=== PATIENT | female | born 1995 | race African-American/Black ===

== ENCOUNTER 2017-04-20 19:53 | Emergency (ER) | payer OTHER ==
[~2017-04-20] VITALS: Ht 162.6 cm; Wt 66.2 kg
[2017-04-20 20:07] VITALS: Ht 162.6 cm; Wt 66.2 kg
[2017-04-20 23:39] LABS: UA SPECIFIC GRAVITY >=1.030 (1.005-1.035); microscopic required? YES; urine erythrocyte NEGATIVE (NEGATIVE)
[2017-04-20 23:41] LABS: BASOPHIL % 0.4 % (0-2); PLATELET COUNT 159 x10^3mcL (130-400); RED CELL DISTRIBUTION WIDTH 13.5 % (11.5-14.5)
[2017-04-20 23:44] LABS: CALCIUM 8.6 mg/dL (8.5-10.1); CARBON DIOXIDE 23.2 mmol/L (21-32); CHLORIDE SERUM 104 mmol/L (98-107); CREATININE SERUM 0.5 mg/dL (0.6-1.0); GFR1 > 60 mL/min; GLUCOSE SERUM 80 mg/dL (74-106); POTASSIUM SERUM 3.8 mmol/L (3.5-5.1); SODIUM SERUM 138 mmol/L (136-145)
[2017-04-20 23:49] LABS: ALKALINE PHOSPHATASE 26 U/L (46-116); ALT/SGPT 15 U/L (14-59); AST/SGOT 11 U/L (15-37); BILIRUBIN TOTAL 0.23 mg/dL (0.20-1.00); TOTAL PROTEIN, SERUM 6.5 g/dL (6.4-8.2)
[2017-04-20 23:52] LABS: ALBUMIN 3.2 g/dL (3.4-5.0)
[2017-04-21 00:03] LABS: AMPHETAMINE QUAL UR NONE DETECTED (NEG <=1000)
[2017-04-21 03:07] VITALS: BP 105/51
== END 2017-04-21 03:07 | disposition home or self-care (01) ==
LOC: ED 19:53
PROVIDERS: Emergency Medicine
DX: R55 Syncope and collapse (principal); N39.0 Urinary tract infection, site not specified
CPT/HCPCS: J7030

== ENCOUNTER 2017-05-06 02:35 | Emergency (ER) | payer OTHER ==
[~2017-05-06] VITALS: Ht 157.5 cm; Wt 74.2 kg
[2017-05-06 02:47] VITALS: Ht 157.5 cm; Wt 74.2 kg
[2017-05-06 04:31] VITALS: BP 103/51
== END 2017-05-06 04:32 | disposition home or self-care (01) ==
LOC: ED 02:35
DX: O26.891 Other specified pregnancy related conditions, first trimester (principal); H60.91 Unspecified otitis externa, right ear; Z3A.00 Weeks of gestation of pregnancy not specified
CPT/HCPCS: J0696